=== PATIENT | male | born 1940 | race Caucasian/White ===

== ENCOUNTER → 2020-06-12 12:24 | Outpatient (CLI) | payer OTHER | END | disposition home or self-care (01) | LOC: LAB 12:24 | PROVIDERS: ATTEND General Practice | DX: U07.1 COVID-19 (principal); R50.9 Fever, unspecified; R05 Cough; R06.02 Shortness of breath; Z03.818 Encounter for observation for suspected exposure to other biological agents ruled out ==

== ENCOUNTER 2020-06-12 13:21 | Outpatient (CLI) | payer OTHER | END 2020-06-12 15:21 | disposition home or self-care (01) | LOC: ASH CLINIC 13:21 | DX: Z23 Encounter for immunization (principal); U07.1 COVID-19 ==